=== PATIENT | female | born 1955 | race Caucasian/White ===

== ENCOUNTER 2017-07-27 16:30 | Outpatient (CLI) | payer BC | END 2017-07-27 16:31 | disposition home or self-care (01) | LOC: BICMAMMO 16:30 | PROVIDERS: ATTEND Obstetrics & Gynecology | DX: Z12.31 Encounter for screening mammogram for malignant neoplasm of breast (principal); N64.89 Other specified disorders of breast | CPT/HCPCS: 77063; 77067 ==

== ENCOUNTER 2018-07-30 14:20 | Outpatient (CLI) | payer BC ==
--- NOTE | 2018-07-30 16:11 | BD ---
DEXA BONE DENSITY EXAM: COMPARISON: None. HISTORY: A 63-year-old postmenopausal female for screening. FINDINGS: Lumbar Spine: BMD (g/cm2) L1 0.802 T-Score: -1.7 L2 0.856 T-Score: -1.6 L3 0.794 T-Score: -2.6 L4 0.656 T-Score: -3.7 L1-L4 0.772 T-Score: -2.5 Femoral Neck: 0.672 T-Score: -1.6 Total Femur: 0.925 T-Score: -0.1 Impression: Osteoporosis. This patient has between a 6 and 7 times increased risk for fracture when compared wit h young patients with normal bone mineral density. POS: RONNIE
--- NOTE | 2018-08-18 15:52 | MMO ---
Bilateral MAMMO Bilat Screen [facility]. CLINICAL HISTORY: Patient is 63 years old and is seen for screening. The patient has no family history of breast cancer. The patient has no personal history of cancer. The patient has a history of right Excisional Biopsy in October, - benign. VIEWS: The views performed were: bilateral craniocaudal with tomosynthesis and bilateral mediolateral oblique with tomosynthesis. FILMS COMPARED: The present examination has been compared to prior imaging studies performed at [facility] on 03/14/1999, 10/14/2000, 10/15/2000, 03/16/2002, 12/13/2002, 12/05/2003, 12/20/2004, 01/02/2006, 01/08/2007, 01/14/2008, 01/19/2009, 02/01/2010, 03/14/2011, 03/30/2012, 04/01/2013, 04/20/2014, 04/20/2015, 05/30/2016 and 07/27/2017. MAMMOGRAM FINDINGS: There are scattered fibroglandular densities. There are no suspicious masses, suspicious calcifications, or new areas of architectural distortion. IMPRESSION: THERE IS NO MAMMOGRAPHIC EVIDENCE OF MALIGNANCY. A ROUTINE FOLLOW-UP MAMMOGRAM IN 1 YEAR IS RECOMMENDED. THE RESULTS OF THIS EXAM WERE SENT TO THE PATIENT. ACR BI-RADS Category 1 - Negative MAMMOGRAPHY NOTE: 1. A negative mammogram report should not delay a biopsy if a dominant of clinically suspicious mass is present. 2. Approximately 10% to 15% of breast cancers are not detected by mammography. 3. Adenosis and dense breasts may obscure an underlying neoplasm.
== END 2018-07-30 14:21 | disposition home or self-care (01) ==
LOC: BICMAMMO 14:20
PROVIDERS: ATTEND Obstetrics & Gynecology
DX: Z12.31 Encounter for screening mammogram for malignant neoplasm of breast (principal); Z13.820 Encounter for screening for osteoporosis; M81.0 Age-related osteoporosis without current pathological fracture; M85.859 Other specified disorders of bone density and structure, unspecified thigh
CPT/HCPCS: 77063; 77067; 77080

== ENCOUNTER 2021-05-29 15:24 | Outpatient (CLI) | payer BC | END 2021-05-29 15:25 | disposition home or self-care (01) | LOC: BICMAMMO 15:24 | PROVIDERS: ATTEND Internal Medicine | DX: Z12.31 Encounter for screening mammogram for malignant neoplasm of breast (principal); M81.0 Age-related osteoporosis without current pathological fracture; M85.851 Other specified disorders of bone density and structure, right thigh; M85.852 Other specified disorders of bone density and structure, left thigh; Z91.89 Other specified personal risk factors, not elsewhere classified | CPT/HCPCS: 77063; 77067; 77080 ==

== ENCOUNTER → 2022-08-06 | Outpatient (CLI) | payer MEDICARE, BC | LOC: PET 08:00 | PROVIDERS: ATTEND Family Medicine | DX: D37.6 Neoplasm of uncertain behavior of liver, gallbladder and bile ducts (principal); R16.0 Hepatomegaly, not elsewhere classified | CPT/HCPCS: 78815; A9552 ==

== ENCOUNTER 2022-12-09 10:55 | Outpatient (CLI) | payer MEDICARE, BC | END 2022-12-09 10:56 | disposition home or self-care (01) | LOC: BICMAMMO 10:55 | PROVIDERS: ATTEND Family Medicine | DX: Z12.31 Encounter for screening mammogram for malignant neoplasm of breast (principal); Z13.820 Encounter for screening for osteoporosis; M81.0 Age-related osteoporosis without current pathological fracture; Z91.89 Other specified personal risk factors, not elsewhere classified | CPT/HCPCS: 77063; 77067; 77080 ==

== ENCOUNTER 2023-03-25 07:40 | Outpatient (CLI) | payer MEDICARE, BC | END 2023-03-25 07:41 | disposition home or self-care (01) | LOC: BICULT 07:40 | PROVIDERS: ATTEND Internal Medicine Gastroenterology | DX: K58.1 Irritable bowel syndrome with constipation (principal); R16.0 Hepatomegaly, not elsewhere classified | CPT/HCPCS: 76700 ==